=== PATIENT | male | born 1960 | race Caucasian/White ===

== ENCOUNTER 2018-10-21 12:00 | Outpatient (CLI) | payer OTHER ==
--- NOTE | 2018-10-21 12:30 | RAD ---
XR Chest Pa Lat @ [facility] HISTORY: Dyspnea COMPARISON: None FINDINGS: The heart size is borderline. There is a left internal jugular portacatheter tip in the pro jection of the SVC. There are changes of COPD. Chronic parenchymal changes present. No lobar consolidation, pneumothoraces or pleural effusions are identified. IMPRESSION: No radiographic evidence of acute cardiopulmonary process.
== END 2018-10-21 12:01 | disposition home or self-care (01) ==
LOC: RAD 12:00
PROVIDERS: ATTEND Internal Medicine Critical Care Medicine
DX: R06.00 Dyspnea, unspecified (principal)
CPT/HCPCS: 71046

== ENCOUNTER 2021-08-04 13:03 | Outpatient (CLI) | payer OTHER | END 2021-08-04 13:04 | disposition home or self-care (01) | LOC: ULT 13:03 | PROVIDERS: ATTEND Nurse Practitioner Adult Health | DX: M79.605 Pain in left leg (principal) ==

== ENCOUNTER 2023-03-30 19:00 | Outpatient (CLI) | payer OTHER | END 2023-03-30 23:59 | disposition home or self-care (01) | LOC: SLEEPLAB 19:00 | PROVIDERS: ATTEND Internal Medicine | DX: G47.33 Obstructive sleep apnea (adult) (pediatric) (principal); R09.02 Hypoxemia | CPT/HCPCS: 95810 ==

== ENCOUNTER 2024-05-28 12:32 | Outpatient (CLI) | payer OTHER | END 2024-05-28 12:33 | disposition home or self-care (01) | LOC: RAD 12:32 | PROVIDERS: ATTEND Internal Medicine | DX: R06.00 Dyspnea, unspecified (principal); J98.4 Other disorders of lung; J43.9 Emphysema, unspecified; R91.8 Other nonspecific abnormal finding of lung field; Z95.828 Presence of other vascular implants and grafts | CPT/HCPCS: 71046 ==